=== PATIENT | male | born 1940 | race African-American/Black ===

== ENCOUNTER 2018-11-20 08:52 | Emergency (ER) | payer BC, OTHER ==
[~2018-11-20] VITALS: Ht 175.3 cm; Wt 82.0 kg
[2018-11-20] MEDS ORDERED: AMLO10TA80 PO (09:23)
[2018-11-20] MEDS ORDERED: KETOROLAC 30MG/ML VIAL IV STA (09:38)
[2018-11-20 10:22] LABS: CHLORIDE 107 mEq/L (98-107)
[2018-11-20 10:26] LABS: BASOPHILS % 0.2 % (0.0-2.0); EOSINOPHILS % 1.7 % (0.0-5.0); HEMATOCRIT. 38.6 % (42.0-52.0); HEMOGLOBIN. 13.2 g/dL (14.0-18.0); LYMPHOCYTES % 10.6 % (20.0-50.0); MEAN CORPUSCULAR HEMOGLOBIN 31.2 pg (28.0-32.0); MEAN CORPUSCULAR VOLUME 91.5 fL (80.0-94.0); MEAN PLATELET VOLUME 8.7 fl (7.4-10.4); NEUTROPHILS % 79.5 % (40.0-76.0); PLATELET 220 x1000/uL (130-400); RED BLOOD CELL COUNT 4.22 mill/uL (4.7-6.1); RED CELL DISTRIBUTION WIDTH 13.8 % (11.6-14.6)
[2018-11-20 11:23] VITALS: BP 110/68
== END 2018-11-20 11:24 | disposition home or self-care (01) ==
LOC: ER 08:52
DX: L03.116 Cellulitis of left lower limb (principal); I10 Essential (primary) hypertension; Z90.89 Acquired absence of other organs; Z98.890 Other specified postprocedural states; Z87.891 Personal history of nicotine dependence; Z88.1 Allergy status to other antibiotic agents
CPT/HCPCS: 36415; 73620; 80053; 85025; 96374; 99284; J1885

== ENCOUNTER 2023-08-15 10:16 | Emergency (ER) | payer BC, MEDICAID ==
[~2023-08-15] VITALS: Ht 177.8 cm; Wt 81.0 kg
[~2023-08-15 10:16] MED LIST: AMLO10TA80 PO; CARB15DR2 EACHEYE; CETI10CA11 PO; LOSA100T33 PO; PROP10DR2 OP; PROT20 MT; TAMSULOSIN PO
[2023-08-15 10:24] VITALS: O2SAT 100
[2023-08-15 12:25] VITALS: BP 148/78; PULSE 78; RESP 18; TEMP 98.2
== END 2023-08-15 12:25 | disposition home or self-care (01) ==
LOC: ER 10:16
DX: S40.822A Blister (nonthermal) of left upper arm, initial encounter (principal); I10 Essential (primary) hypertension; Z98.890 Other specified postprocedural states; Z90.89 Acquired absence of other organs; Z88.0 Allergy status to penicillin; Z88.8 Allergy status to other drugs, medicaments and biological substances; Z91.040 Latex allergy status; X58.XXXA Exposure to other specified factors, initial encounter; Y93.89 Activity, other specified; Y92.89 Other specified places as the place of occurrence of the external cause; Y99.8 Other external cause status
CPT/HCPCS: 99283